=== PATIENT | female | born 1985 | race Caucasian/White ===

== ENCOUNTER 2021-11-11 14:26 | Inpatient (IN) ==
[2021-11-11 16:05] LABS: Basophils # (auto) 0.02 K/uL (0-0.2); Basophils % (auto) 0.2 %; Eosinophils # (auto) 0.06 K/uL (0-0.50); Eosinophils % (auto) 0.7 %; Hematocrit (blood only) 37.9 % (34.1-44.9); Hemoglobin 12.9 g/dl (12.0-16.0); Immature Granulocytes # (auto) 0.04 K/uL (0.00-0.02); Immature Granulocytes % (auto) 0.5 %; Lymphocytes # (auto) 1.39 K/uL (1.2-3.4); Lymphocytes % (auto) 16.3 %; Mean Corpuscular Hemoglobin 30.1 pg (25.0-34.0); Mean Corpuscular Volume 88.6 fL (80.0-100.0); Mean Platelet Volume 12.9 fL (9.4-12.3); Monocytes # (auto) 0.69 K/uL (0.24-0.82); Monocytes % (auto) 8.1 %; Neutrophils # (auto) 6.34 K/uL (1.4-6.5); Neutrophils % (auto) 74.2 %; Platelet Count 131 K/uL (130-400); RDW Coefficient of Variation 14.1 % (11.5-14.5); RDW Standard Deviation 45.1 fL (36.4-46.3); Red Blood Count 4.28 M/uL (3.93-5.22); White Blood Count 8.54 K/ul (4.8-10.8)
[2021-11-11 16:16] LABS: Creatinine Urine Random 86.2 mg/dl; Protein Creatinine Ratio Urine 0.2 (0-0.2); Total Protein Urine Random 13.8 mg/dl (0-11.9)
[2021-11-11 16:36] LABS: Albumin Globulin Ratio 1.1 (0.9-2); Albumin Level 3.4 gm/dl (3.4-5.0); BUN Creatinine Ratio 18.3 (10-20); Bilirubin,Total 0.6 mg/dl (0.2-1.0); Calcium 9.2 mg/dl (8.5-10.1); Creatinine Clr Calc Pharmacy 91.8 ml/min; Est GFR (African American) 108.2 ml/min; Est GFR (Non-African American) 93.4 ml/min; Globulin 3.2 gm/dl (2.5-4.0); Potassium 3.6 mmol/L (3.5-5.1); Total Protein 6.6 gm/dl (6.0-8.3); Uric Acid 5.5 mg/dl (2.6-7.2)
[2021-11-11] MEDS ORDERED: LACTATED RINGER'S 1,000 ML IV PRN (17:30)
[2021-11-11] MEDS ORDERED: Patient's ALLERGY Info needs ENTERED SCH (17:45)
[2021-11-11] MEDS ORDERED: LABETALOL HCL IV 5 MG/ML 20ML IV STA (17:49)
[2021-11-11] MEDS ORDERED: LABETALOL HCL IV 5 MG/ML 20ML IV ONE (18:09)
[2021-11-11] MEDS ORDERED: DINOPROSTONE 10 MG INSERT PV ONE (18:30)
--- NOTE | 2021-11-11 18:50 | History & Physical Report ---
Date of Service November 11, 2021 Assessment & Plan (1) Gestational hypertension: Plan Admit to L and D Regular diet x 1 visit Preeclamptic labs Protein /cr ratio labetalol if the blood pressures above 160/95 pain meds including epidural as the pt desires Cervidil placement PV for cervical ripening Admission and Anticipated Discharge Date Admission Date: November 11, 2021 History of Present Illness Chief Complaint: pt 35 yr old IUP at 40 weeks 4 days came in from the office for elevated blood pressures. Primary Care Provider: Nilo Quintana MD Pt denies regular uterine contractions, vaginal bleeding, leaking of fluid per vagina etc. Reports good movement. Pt denies head aches, blurry vision, epigastric pain. Allergies Allergy/AdvReac Type Severity Reaction Status Date / Time No Known Allergies Allergy Verified 11/11/21 18:25 Home Medications Medication Instructions Recorded Confirmed Type coenzyme Q10 100 mg capsule (Co 100 mg PO TID 11/11/21 11/11/21 History Q-10) magnesium 100 mg tablet 100 mg PO BID 11/11/21 11/11/21 History omeprazole magnesium 20 mg 20 mg PO DAILY 11/11/21 11/11/21 History tablet,delayed release (Prilosec OTC) vits,calcium 21-iron fum 1 tab PO DAILY 11/11/21 11/11/21 History 14 mg iron-folic acid 400 mcg tablet ( Complete) pyridoxine (vitamin B6) 500 mg 100 mg PO DAILY 11/11/21 11/11/21 History capsule riboflavin (vitamin B2) 100 mg 100 mg PO DAILY 11/11/21 11/11/21 History tablet Patient History Medical History Carrier of fragile X chromosome Female infertility Protein C deficiency Surgical History History of tonsillectomy and adenoidectomy Family History Grandmother (Paternal) Protein C deficiency Mother Oropharyngeal cancer Drug abuse Grandmother (Maternal) Breast cancer Father Hypertension Sister Cleft lip and cleft palate Family/Other Cleft lip and cleft palate Social History Smoking Status: Never smoker Second Hand Exposure: No; Do You Dip or Chew Tobacco: No; Hx Alcohol Use: No Hx Substance Use: No Preferred Language: Lebanese Communication Ability: Effective 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 Beliefs That Will Affect Care: None marital status: Current Living Situation: Spouse Other Information That Helps Us Care for You: No Feels Safe at Home: Yes Safety Concerns: Feels Safe At This Time Assistive Devices: None Review of Systems All systems reviewed & are unremarkable except as noted in HPI & below Physical Exam Constitutional: WD/WN, vitals as above well developed and well nourished Eyes: PERRL, conjunctivae normal, anicteric sclerae Neck: trachea midline, no thyromegaly Respiratory: normal respiratory effort, lungs clear to auscultation Cardiovascular: RRR, no murmur, no edema Chest (Breasts): Chest: normal inspection of chest Gastrointestinal (Abdomen): normal bowel sounds, soft, nontender, no hepatosplenomegaly Skin: no rashes, warm and dry Genitourinary: no vaginal lesions, no adnexal mass normal external appearance OB Exam Abdomen: + vertex Manual OB Exam: + cervical dilation (1.5 cm), + cervical effacement 50% and + station -2 OB Exam Monitor Tracing: + external FHT monitor used, + external uterine monitor used and + category I Results & Data ([facility]) Vital Signs (Past 12 Hours) Vital Signs Temp Pulse Resp BP Pulse Ox 11/11/21 14:56 36.8 C 117 H 18 137/92 11/11/21 18:41 98 11/11/21 18:41 82 11/11/21 18:41 140/89 11/11/21 18:40 82 11/11/21 18:40 150/96 H 11/11/21 18:36 98 11/11/21 18:36 95 H 11/11/21 18:34 92 11/11/21 18:34 92 H 11/11/21 18:31 98 11/11/21 18:31 94 H 11/11/21 18:30 100 H 11/11/21 18:30 144/94 H 11/11/21 18:26 97 11/11/21 18:26 84 11/11/21 18:21 98 11/11/21 18:21 81 11/11/21 18:21 75 11/11/21 18:21 138/84 11/11/21 18:16 97 11/11/21 18:16 83 11/11/21 18:10 90 11/11/21 18:10 145/92 H 11/11/21 18:07 89 11/11/21 18:07 144/89 H 11/11/21 17:50 102 H 152/100 H 11/11/21 17:40 105 H 159/104 H 11/11/21 17:30 89 146/88 H 11/11/21 17:19 100 H 136/103 H 11/11/21 15:36 93 H 150/101 H 11/11/21 15:04 36.8 C 117 H 18 137/92 11/11/21 14:45 125 H 136/95 Medications Administered labetalol 20 mg IV Code Status & VTE Plan VTE Prophylaxis Plan VTE Prophylaxis will be ordered: No Monitoring External Monitor 140s, Good variability, positive acceleration Tocodynamometer irregular uterine contractions
[2021-11-11] MEDS ORDERED: SODIUM CHLORIDE 0.9% 250 ML IV PRN (19:20)
[2021-11-11] MEDS ORDERED: diphenhydrAMINE Capsule 25 MG CAP PO ONE (19:22)
[2021-11-11] MEDS ORDERED: ACETAMINOPHEN 500 MG TAB PO STA (19:22)
--- NOTE | 2021-11-11 19:28 | Labor Progress Brief Note ---
Date of Service November 11, 2021 Assessment & Plan (1) Gestational hypertension: (2) Encounter for induction of labor: Plan Cervidil placed PV for cervical softening pain meds including epidural as the pt desires Admission and Anticipated Discharge Date Admission Date: November 11, 2021 Results & Data ([facility]) Vital Signs (Past 12 Hours) Vital Signs Temp Pulse Resp BP Pulse Ox 11/11/21 14:56 36.8 C 117 H 18 137/92 11/11/21 18:50 82 11/11/21 18:50 136/84 11/11/21 18:41 98 11/11/21 18:41 82 11/11/21 18:41 140/89 11/11/21 18:40 82 11/11/21 18:40 150/96 H 11/11/21 18:36 98 11/11/21 18:36 95 H 11/11/21 18:34 92 11/11/21 18:34 92 H 11/11/21 18:31 98 11/11/21 18:31 94 H 11/11/21 18:30 100 H 11/11/21 18:30 144/94 H 11/11/21 18:26 97 11/11/21 18:26 84 11/11/21 18:21 98 11/11/21 18:21 81 11/11/21 18:21 75 11/11/21 18:21 138/84 11/11/21 18:16 97 11/11/21 18:16 83 11/11/21 18:10 90 11/11/21 18:10 145/92 H 11/11/21 18:07 89 11/11/21 18:07 144/89 H 11/11/21 17:50 102 H 152/100 H 11/11/21 17:40 105 H 159/104 H 11/11/21 17:30 89 146/88 H 11/11/21 17:19 100 H 136/103 H 11/11/21 15:36 93 H 150/101 H 11/11/21 15:04 36.8 C 117 H 18 137/92 11/11/21 14:45 125 H 136/95
[2021-11-11] MEDS ORDERED: BUTORPHANOL TARTRATE 1 MG/ML VIAL IV STA (23:45)
[2021-11-12] MEDS ORDERED: METOCLOPRAMIDE HCL INJ 5 MG/ML 2 ML VIAL IV STA (02:50)
[2021-11-12] MEDS ORDERED: diphenhydrAMINE 50 MG/ML VIAL IV STA (02:51)
[2021-11-12] MEDS ORDERED: ACETAMINOPHEN 325 MG TAB PO PRN ×2 (02:58→04:32)
[2021-11-12] MEDS: OXYTOCIN 30 UNITS/500 ML BAG IV PRN ×2 (03:32→04:05)
[2021-11-12] MEDS ORDERED: ERYTHROMYCIN OP OINT 1 GM PKT ONE (03:41)
--- NOTE | 2021-11-12 04:31 | Delivery Summary ---
Vaginal Delivery Summary Date of Service November 12, 2021 Vaginal Delivery Summary Vaginal Delivery Summary Date of Service November 12, 2021 Vaginal Delivery Summary DELIVERY NOTE She is a 1, para 1,IUP at 40 weeks 4 days. She was brought in for induction of labor with Cervidil. After placement of PV Cervidil, she went to full dilatation.Pt fully dilated and pushed for few minutes delivered a live male via right occiput anterior, placed on the mothers abdomen, suctioned the through the mouth and the nose, cord clamped and cut by the FOB. Cord blood was taken. With IV Pitocin running, placenta was removed intact. . The repair consisted of a small primary right labial laceration, which is repaired with 3.0 vicryl.. Following this, sponges were removed from the vagina. There was no hematoma formation. Hemostasis was good. Estimated blood loss 250 mL. Apgars: 8, 9 at 1 and 5 min. sponge and needle count correct.
[2021-11-12] MEDS ORDERED: HYDROCORTISONE ACETATE 25 MG SUPP PR PRN (04:32)
[2021-11-12] MEDS ORDERED: DIPHTHERIA/TETANUS/PERTUSSIS 0.5 ML SYR/VIAL IM ONE (04:32)
[2021-11-12] MEDS ORDERED: BENZOCAINE 20% AER SPR 82.5 GM CAN EXT PRN (04:32)
[2021-11-12] MEDS ORDERED: OXYTOCIN 30 UNITS/500 ML BAG IV PRN (04:32)
[2021-11-12] MEDS: IBUPROFEN 600 MG TAB PO PRN ×5 (05:30→22:00)
[2021-11-12] MEDS: PRENATAL VITAMIN 1 TAB PO SCH (08:15)
[2021-11-12] MEDS: DOCUSATE SODIUM 100 MG CAP PO SCH ×2 (08:15→22:00)
[2021-11-13] MEDS: IBUPROFEN 600 MG TAB PO PRN ×3 (02:14→10:43)
[2021-11-13 07:47] LABS: Hematocrit (blood only) 35.7 % (34.1-44.9); Hemoglobin 11.8 g/dl (12.0-16.0); Mean Corpuscular Hgb Conc 33.1 g/dL (32.0-36.0); Mean Corpuscular Volume 90.8 fL (80.0-100.0); Mean Platelet Volume 12.6 fL (9.4-12.3); Platelet Count 106 K/uL (130-400); RDW Coefficient of Variation 14.2 % (11.5-14.5); RDW Standard Deviation 47.6 fL (36.4-46.3); Red Blood Count 3.93 M/uL (3.93-5.22); White Blood Count 9.66 K/ul (4.8-10.8)
[2021-11-13] MEDS: PRENATAL VITAMIN 1 TAB PO SCH (07:58)
[2021-11-13] MEDS: DOCUSATE SODIUM 100 MG CAP PO SCH (07:58)
--- NOTE | 2021-11-13 11:14 | Obstetrical Progress Note ---
Date of Service November 13, 2021 Assessment & Plan (1) Normal course: [id number] pt doing well wishes to be disch PM after baby circumcision Subjective Ambulation: ambulating normally Voiding: no voiding problems Passing Gas:: Yes Diet Tolerance:: regular diet Lochia:: Small Feeding Type:: breast feeding Review of Systems All systems reviewed & are unremarkable except as noted in HPI & below Physical Exam Constitutional WD/WN, vitals as above well developed and well nourished Eyes PERRL, conjunctivae normal, anicteric sclerae Neck trachea midline, no thyromegaly Respiratory normal respiratory effort, lungs clear to auscultation Auscultation: no crackles, no rales and no wheezes Cardiovascular RRR, no murmur, no edema Gastrointestinal (Abdomen) normal bowel sounds, soft, nontender, no hepatosplenomegaly Uterus is below umbilicus Musculoskeletal no cyanosis or clubbing, extremities motor strength 5/5 Skin no rashes, warm and dry Neurologic patellar DTR's 2+ bilat, sensation intact Psychiatric A+Ox3, euthymic affect Genitourinary normal external appearance Results & Data ([facility]) Vital Signs (Past 12 Hours) Vital Signs Temp Pulse Resp BP BP Pulse Ox O2 Del Method 11/13/21 07:45 36.7 C 66 16 111/73 98 Room Air 11/13/21 04:00 36.5 C 72 16 130/75 98 Room Air 11/13/21 00:00 36.8 C 57 L 16 108/68 98 Room Air
[2021-11-13] MEDS ORDERED: bisacodyL 5 MG TABEC PO SCH (20:00)
[2021-11-14] MEDS ORDERED: bisacodyL 10 MG SUPP PR PRN
== END 2021-11-13 14:50 | disposition home or self-care (01) | DRG 807 ==
LOC: OPB 14:26 → 4S1 14:29 → 4E2 11-12 06:30